=== PATIENT | male | born 1975 | race Caucasian/White ===

== ENCOUNTER 2018-10-27 04:46 | Emergency (ER) | payer SELFPAY ==
[2018-10-27 04:54] VITALS: BP 120/80; PULSE 81; RESP 16; TEMP 37.1; O2SAT 99
--- NOTE | 2018-10-27 05:12 | W.ED.GENAD ---
Discharge Plan Disposition Patient Disposition: HOME Condition: Improving Discharge Details Chief Complaint: Nk/Back Pain Clinical Impression: Lumbago Primary Care Provider: Barbara Hernandez ED Provider: Bowen Newman Home Meds and New Rx's Prescriptions: New methocarbamol 500 mg tablet 500 - 1,000 mg PO Q6H PRN (Reason: Back pain or spasm) Qty: 14 RF: 0 Continued cetirizine [Zyrtec] 10 MG tablet 10 mg PO QAM RF: 0 Discharge Instructions Instructions: Low Back Strain (ED) Additional Instructions: Home to rest. May use Tylenol and/or ibuprofen as needed for discomfort. Remove the Lidoderm patch in 12 hours. Continue to hydrate today and may perform gentle range of motion exercises as we discussed. Return to the emergency department for worsening pain, development of numbness or weakness of the lower extremities, or any other acute concerns. Please follow-up with regular doctor if not improving in 5 days time. Medical Decision Making 42-year-old male with a long history of chronic and recurrent back pain presents with lumbar back pain that began while bending over to tie his shoes this morning. He has no motor or sensory deficits. He did not have any fall. His vital signs are normal. Patient given parenteral ketorolac and hydromorphone. Substance able to ambulate with good heel strike, subjective report of diminished pain. We will place a Lidoderm patch which she is to remove in 12 hours. Will offer methocarbamol for home. He understands homecare as well as return precautions. Stable and improved at this time. HPI General Mode of arrival: wheelchair. Date/Time Provider Initiated Documentation: 10/27/18 04:47. Limitations to Documentation: no limitations. Information obtained by: patient and family. History of Present Illness 42 year old M presents to the emergency department with the chief complaint of Low back pain after bending to tie shoes, described as severe and similar to prior episodes, Quality is described as aching, and is localized to the back. Patient reports no radiation. Patient started experiencing this hour(s) and it has been constant. Rest improves symptom(s), Movement worsens symptoms . Patient notes no other symptoms.; denies weakness. Patient did receive the following treatments prior to arrival, none Related Data Home Medications Medication Instructions Recorded Confirmed cetirizine [Zyrtec] 10 mg PO QAM tab-cap 06/21/17 10/27/18 methocarbamol 500 - 1,000 mg PO Q6H PRN #14 tab 10/27/18 Previous Rx's Medication Instructions Recorded methocarbamol 500 - 1,000 mg PO Q6H PRN #14 tab 10/27/18 Allergies Allergy/AdvReac Type Severity Reaction Status Date / Time aspirin AdvReac Unknown Unverified 10/27/18 04:56 General Stated Complaint: Nk/Back Pain JOEL: 4 Review of Systems Review of Systems 8 systems reviewed and otherwise negative [facility] Surgical History Arthroscopy, Shoulder (12/29/12) Family History Mother Essential hypertension Heart disease Father No problems noted. Sister Obesity Sister No problems noted. Grandmother Diabetes Social History Smoking/Tobacco Use Status: Former Tobacco Use Exam Narrative Exam Narrative: GEN: awake, alert, oriented 3. Pleasant, well groomed, interactive. HEAD: Normocephalic, atraumatic ENT: Mucous membranes moist, oropharynx unremarkable, External ear exam unremarkable EYES: PERRL, EOMI NECK: Full ROM, no HAIDER, no menigismus CHEST/RESP: Nontender, clear to auscultation bilateral, no wheeze/rhonchi/rales CARDIOVASCULAR: RRR, no murmur, rub caprice. 2+ Rad pulse bilateral ABDOMEN: Soft, nontender, no mass. +Bowel sounds Back: No midline step-off, tenderness, deformity. No sciatic notch tenderness. EXT: Full ROM, no edema, no rash. Motor is 5 out of 5 but resisted extension of the legs produces back pain. Saddle distribution sensation is intact. Great toe proprioception intact Neuro: Grossly normal neurologic exam, conversant, interactive. Psych: Speech fluent, thoughts congruent, affect normal Course Vital Signs Temperature 37.1 C 10/27/18 04:54 Pulse 81 10/27/18 04:54 Respiratory Rate 16 10/27/18 04:54 Blood Pressure 120/80 10/27/18 04:54 Pulse Oximetry 99 10/27/18 04:54 Temperature 37.1 C 10/27/18 04:54 Temperature Source Temporal Artery Scan 10/27/18 04:54 Pulse 81 10/27/18 04:54 Respiratory Rate 16 10/27/18 04:54 Respiratory Effort 10/27/18 04:57 Blood Pressure 120/80 10/27/18 04:54 Blood Pressure Position Sitting 10/27/18 04:54 Pulse Oximetry 99 10/27/18 04:54 Oxygen Delivery Method Room Air 10/27/18 04:54 Oxygen Flow Rate 0 10/27/18 04:54 Pain Level 10 10/27/18 04:57
[2018-10-27] MEDS: HYDROmorphone 2 MG/ML VIAL 1 MG IVP (05:30)
[2018-10-27] MEDS: Ketorolac 30 MG/ML VIAL IVP (05:30)
--- NOTE | 2018-10-27 06:06 | NUR.NOTE ---
Nursing Note: Pt road tested for ambulation. Able to bring self slowly to sitting position and stand, bearing weight and upright. Pt states minimal pain improvement, though appears markedly more comfortable. aware.
[2018-10-27] MEDS: Lidocaine 5% Patch 1 PATCH TP (06:12)
[2018-10-27 06:16] VITALS: BP 121/87; PULSE 68; RESP 16; TEMP 37.1; O2SAT 99
== END 2018-10-27 06:22 | disposition home or self-care (01) ==
PROVIDERS: Emergency Provider Emergency Medicine; PCP Nurse Practitioner Family
DX: M54.5 Low back pain (principal); X50.9XXA Other and unspecified overexertion or strenuous movements or postures, initial encounter
CPT/HCPCS: 96374; 96375; 99284; 99283; J1885